=== PATIENT | female | born 1955 | race Caucasian/White ===

== ENCOUNTER → 2018-02-24 12:10 | Outpatient (CLI) | payer OTHER, SELFPAY ==
--- NOTE | 2018-02-24 | DI.MG.S_ITS ---
BILATERAL DIGITAL SCREENING MAMMOGRAM 3D/2D WITH CAD: 02/24/2018 CLINICAL: Routine screening. Comparison is made to exams dated: 02/14/2017 mammogram, 01/10/2015 mammogram, and 08/12/2010 mammogram - [facility]. The tissue of both breasts is heterogeneously dense. This may lower the sensitivity of mammography. Current study was also evaluated with a Computer Aided Detection (CAD) system. No significant masses, calcifications, or other findings are seen in either breast. There has been no significant interval change. IMPRESSION: NEGATIVE There is no mammographic evidence of malignancy. A 1 year screening mammogram is recommended. This exam was interpreted at Station ID: [id number]. NOTE: For mammograms, a report in lay terms will be sent to the patient. Approximately 15% of breast malignancies will not be visualized mammographically. In the management of a palpable breast mass, a negative mammogram must not discourage biopsy of a clinically suspicious lesion. Electronically Signed By: Brad rodriguez/fatmata:02/24/2018 16:37:58 copy to: Netta Pierce letter sent: Normal Exam ACR BI-RADS Category 1: Negative 3341F
== END ==
PROVIDERS: Family Provider Physician Assistant; PCP Physician Assistant; Visit Provider Physician Assistant
DX: Z12.31 Encounter for screening mammogram for malignant neoplasm of breast (principal)
CPT/HCPCS: 77063; 77067

== ENCOUNTER → 2019-01-04 11:56 | Outpatient (CLI) | payer OTHER, SELFPAY ==
--- NOTE | 2019-01-04 11:59 | DI.RAD.S_ITS ---
PROCEDURE: XR HAND LT MIN 3V INDICATIONS: INJURED 3RD FINGEWR DOG +LEASH. TECHNIQUE: 3 views of the hand(s) acquired. COMPARISON: None. FINDINGS: Bones: No fractures or dislocations. Carpal bones are normally aligned. No suspicious bony lesions. Soft tissues: No suspicious soft tissue calcifications. No radiopaque foreign body. IMPRESSION: Fracture or dislocation. Dictated by: Robyn Davis M.D. on 01/04/2019 at 13:25 Approved by: Robyn Davis M.D. on 01/04/2019 at 13:26
== END ==
PROVIDERS: Family Provider Physician Assistant; PCP Physician Assistant; Visit Provider Physician Assistant
DX: S69.92XA Unspecified injury of left wrist, hand and finger(s), initial encounter (principal); X58.XXXA Exposure to other specified factors, initial encounter
CPT/HCPCS: 73130

== ENCOUNTER → 2019-02-21 10:01 | Outpatient (CLI) | payer OTHER, SELFPAY ==
[2019-02-21 10:06] LABS: Bacteria Urine None Seen; RBC Urine None Seen (0-5/HPF); WBC Urine None Seen (0-5/HPF)
[2019-02-21 10:44] LABS: Appearance Urine UA CLEAR; Bilirubin Urine UA NEGATIVE (NEGATIVE); Color Urine UA YELLOW; Glucose Urine UA NEGATIVE (Negative); Ketones Urine UA NEGATIVE (NEGATIVE); Leukocyte Esterase Urine UA NEGATIVE (NEGATIVE); Nitrite Urine UA NEGATIVE (Negative); Occult Blood Urine UA NEGATIVE (Negative); Protein Urine UA NEGATIVE (Negative); Specific Gravity Urine UA <=1.005 (1.000-1.035); Urobilinogen Urine UA 0.2 E.U./dL (0.2)
[2019-02-21 10:51] LABS: Culture Indicated Urine Cult Not Indicated; Urine Comments Microscopic Normal
== END ==
PROVIDERS: PCP Specialist; Visit Provider Specialist
DX: R39.9 Unspecified symptoms and signs involving the genitourinary system (principal)
CPT/HCPCS: 81001

== ENCOUNTER → 2019-05-02 11:41 | Outpatient (CLI) | payer OTHER, SELFPAY ==
[2019-05-02 12:30] LABS: Add Manual Diff / Slide Review NO; Basophils Absolute Auto 0 /uL (0-100); Basophils Percent Auto 0.5 % (0-2); Eosinophils Absolute Auto 0 /uL (0-450); Eosinophils Percent Auto 0.5 % (2-4); Hematocrit 40.9 % (36-46); Hemoglobin 14.1 g/dL (12.0-16.0); Lymphocytes Absolute Auto 1700 /uL (1100-4500); Lymphocytes Percent Auto 27.3 % (25-40); Mean Corpuscular HGB Conc 34.6 % (30-36); Mean Corpuscular Hemoglobin 30.9 PG (26-34); Mean Corpuscular Volume 89.4 fL (80-100); Monocytes Absolute Auto 500 /uL (0-900); Monocytes Percent Auto 7.3 % (3-14); Neutrophils Absolute Auto 4100 /uL (1500-7000); Neutrophils Percent Auto 64.4 % (50-75); Platelet Count 234 X10^3/uL (150-400); Red Blood Cell Count 4.57 X10^6/uL (4.0-5.2); Red Cell Distribution Width 13.6 % (11.6-14.8); White Blood Cell Count 6.4 X10^3/uL (4.5-11.0)
[2019-05-02 12:49] LABS: C-Reactive Protein Quant < 0.5 mg/dL (<1.0)
[2019-05-02 13:04] LABS: Erythrocyte Sedimentation Rate 5 MM/HR (0-20)
== END ==
PROVIDERS: PCP Family Medicine; Referring Provider Family Medicine; Visit Provider Family Medicine
DX: K57.30 Diverticulosis of large intestine without perforation or abscess without bleeding (principal); R10.9 Unspecified abdominal pain
CPT/HCPCS: 36415; 85025; 85651; 86140

== ENCOUNTER → 2020-02-20 14:52 | Outpatient (CLI) | payer OTHER, SELFPAY ==
--- NOTE | 2020-02-20 14:55 | DI.MG.S_ITS ---
BILATERAL DIGITAL SCREENING MAMMOGRAM 3D/2D WITH CAD: 02/20/2020 CLINICAL: Routine screening. Comparison is made to exams dated: 02/24/2018 mammogram, 02/14/2017 mammogram, and 01/10/2015 mammogram - [facility]. There are scattered fibroglandular elements in both breasts. Current study was also evaluated with a Computer Aided Detection (CAD) system. No significant masses, calcifications, or other findings are seen in either breast. There has been no significant interval change. IMPRESSION: NEGATIVE There is no mammographic evidence of malignancy. A 1 year screening mammogram is recommended. This exam was interpreted at Station ID: [id number]. NOTE: For mammograms, a report in lay terms will be sent to the patient. Approximately 15% of breast malignancies will not be visualized mammographically. In the management of a palpable breast mass, a negative mammogram must not discourage biopsy of a clinically suspicious lesion. Electronically Signed By: Reji vincent/fatmata:02/20/2020 15:38:38 copy to: Netta Pierce letter sent: Normal Exam ACR BI-RADS Category 1: Negative 3341F
== END ==
PROVIDERS: PCP Family Medicine; Referring Provider Family Medicine; Visit Provider Family Medicine
DX: Z12.31 Encounter for screening mammogram for malignant neoplasm of breast (principal)
CPT/HCPCS: 77063; 77067

== ENCOUNTER → 2021-01-30 09:54 | Outpatient (CLI) | payer OTHER, SELFPAY | PROVIDERS: PCP Family Medicine; Referring Provider Physician Assistant Medical; Visit Provider Physician Assistant Medical | DX: L30.9 Dermatitis, unspecified (principal) | CPT/HCPCS: 36415; 86038 ==

== ENCOUNTER → 2021-03-13 10:04 | Outpatient (CLI) | payer OTHER, SELFPAY ==
[2021-03-13 10:27] LABS: COVID19 -Nasal RAPID POSITIVE (Negative)
== END ==
PROVIDERS: PCP Family Medicine; Visit Provider Nurse Practitioner Family
DX: Z20.822 Contact with and (suspected) exposure to COVID-19 (principal)
CPT/HCPCS: 87635

== ENCOUNTER → 2021-03-26 16:24 | Outpatient (CLI) | payer OTHER, SELFPAY ==
--- NOTE | 2021-03-26 | DI.MG.S_ITS ---
BILATERAL DIGITAL SCREENING MAMMOGRAM 3D/2D WITH CAD: 03/26/2021 CLINICAL: Routine screening. Comparison is made to exams dated: 02/20/2020 mammogram, 02/24/2018 mammogram, and 02/14/2017 mammogram - [facility]. There are scattered fibroglandular elements in both breasts. Current study was also evaluated with a Computer Aided Detection (CAD) system. No significant masses, calcifications, or other findings are seen in either breast. There has been no significant interval change. IMPRESSION: NEGATIVE There is no mammographic evidence of malignancy. A 1 year screening mammogram is recommended. This exam was interpreted at Station ID: [id number]. NOTE: For mammograms, a report in lay terms will be sent to the patient. Approximately 15% of breast malignancies will not be visualized mammographically. In the management of a palpable breast mass, a negative mammogram must not discourage biopsy of a clinically suspicious lesion. Electronically Signed By: Melissa givens/fatmata:03/27/2021 09:28:51 copy to: Netta Pierce letter sent: Normal Exam ACR BI-RADS Category 1: Negative 3341F
== END ==
PROVIDERS: PCP Family Medicine; Referring Provider Family Medicine; Visit Provider Family Medicine
DX: Z12.31 Encounter for screening mammogram for malignant neoplasm of breast (principal)
CPT/HCPCS: 77063; 77067

== ENCOUNTER → 2021-07-17 10:00 | Outpatient (CLI) | payer MEDICARE, OTHER, SELFPAY ==
[2021-07-17 10:37] LABS: Add Manual Diff / Slide Review NO; Basophils Absolute Auto 0 /uL (0-100); Basophils Percent Auto 0.2 % (0-2); Eosinophils Absolute Auto 0 /uL (0-450); Eosinophils Percent Auto 0.4 % (2-4); Hematocrit 41.7 % (36-46); Hemoglobin 14.3 g/dL (12.0-16.0); Lymphocytes Absolute Auto 1400 /uL (1100-4500); Mean Corpuscular HGB Conc 34.2 % (30-36); Mean Corpuscular Hemoglobin 30.9 PG (26-34); Mean Corpuscular Volume 90.3 fL (80-100); Monocytes Absolute Auto 400 /uL (0-900); Neutrophils Absolute Auto 4300 /uL (1500-7000); Neutrophils Percent Auto 70.4 % (50-75); Platelet Count 221 X10^3/uL (150-400); Red Blood Cell Count 4.62 X10^6/uL (4.0-5.2); Red Cell Distribution Width 13.9 % (11.6-14.8); White Blood Cell Count 6.2 X10^3/uL (4.5-11.0)
[2021-07-17 10:56] LABS: Alanine Aminotransferase 21 IU/L (<35); Albumin 5.1 g/dL (3.5-5.0); Albumin Globulin Ratio 1.8 (1.0-2.8); Alkaline Phosphatase 73 U/L (38-126); Aspartate Aminotransferase 35 IU/L (14-36); BUN Creatinine Ratio 23.5 (6-22); Bilirubin Total 0.7 mg/dL (0.2-1.3); Blood Urea Nitrogen 19 mg/dL (7-17); Carbon Dioxide 26 mmol/L (22-32); Chloride 104 mmol/L (98-107); Cholesterol 205 mg/dL (140-199); Estimated Glomerular Filt Rate > 60 mL/min (>60); Globulin 2.8 g/dL (1.7-4.1); Glucose 94 mg/dL (80-110); HDL Cholesterol 91 mg/dL (40-60); HEMOLYSIS < 15 (0-50); LDL Cholesterol Calculated 102 mg/dL (<100); Potassium 3.9 mmol/L (3.4-5.1); Sodium 141 mmol/L (137-145); Total Protein 7.9 g/dL (6.3-8.2); Triglycerides 59 mg/dL (35-150)
[2021-07-17 11:00] LABS: Rheumatoid Factor < 8.6 IU/mL (<12.0)
== END ==
PROVIDERS: PCP Family Medicine; Referring Provider Family Medicine; Visit Provider Family Medicine
DX: Z00.00 Encounter for general adult medical examination without abnormal findings (principal); Z12.11 Encounter for screening for malignant neoplasm of colon; Z80.0 Family history of malignant neoplasm of digestive organs
CPT/HCPCS: 36415; 80053; 80061; 84443; 85025; 86430

== ENCOUNTER → 2022-06-21 09:59 | Outpatient (CLI) | payer MEDICARE, OTHER, SELFPAY ==
--- NOTE | 2022-06-21 | DI.MG.S_ITS ---
BILATERAL DIGITAL SCREENING MAMMOGRAM 3D/2D WITH CAD: 06/21/2022 CLINICAL: Routine screening. Comparison is made to exams dated: 03/26/2021 mammogram, 02/20/2020 mammogram, and 02/24/2018 mammogram - [facility]. There are scattered areas of fibroglandular density in both breasts (category b / 25%-50% glandular tissue). Current study was also evaluated with a Computer Aided Detection (CAD) system. No significant masses, calcifications, or other findings are seen in either breast. There has been no significant interval change. IMPRESSION: NEGATIVE There is no mammographic evidence of malignancy. A 1 year screening mammogram is recommended. Based on the Tyrer Cuzick model (a risk assessment model) the patient's lifetime risk is 5.5% and her 10 year risk is 2.6%. According to the ACR, ACS, and NCCN guidelines, an annual breast MRI exam along with mammogram is recommended if the patient's lifetime risk is 20% or greater. This exam was interpreted at Station ID: [id number]. NOTE: For mammograms, a report in lay terms will be sent to the patient. Approximately 15% of breast malignancies will not be visualized mammographically. In the management of a palpable breast mass, a negative mammogram must not discourage biopsy of a clinically suspicious lesion. Electronically Signed By: Melissa givens/fatmata:06/21/2022 13:27:26 copy to: Netta Pierce letter sent: Normal Exam ACR BI-RADS Category 1: Negative 3341F
== END ==
PROVIDERS: PCP Family Medicine; Referring Provider Family Medicine; Visit Provider Family Medicine
DX: Z12.31 Encounter for screening mammogram for malignant neoplasm of breast (principal)
CPT/HCPCS: 77063; 77067

== ENCOUNTER → 2022-08-21 10:44 | Outpatient (CLI) | payer MEDICARE, OTHER, SELFPAY ==
--- NOTE | 2022-08-21 10:46 | DI.MRI.S_ITS ---
PROCEDURE: MR KNEE RT WO CON INDICATIONS: pain in left knee TECHNIQUE: Noncontrast sagittal PD fast spin echo and T2 fast spin echo with fat saturation, sagittal 3-D FLASH with fat saturation; coronal T1 spin echo and PD fast spin echo with fat saturation, and axial PD fast spin echo with fat saturation through the knee. COMPARISON:. [facility], CR, XR KNEE ARTHRITIC SERIES LT, 08/05/2022, 10:43. FINDINGS: Image quality: Excellent. Menisci: Oblique high T2 signal intensity traverses the peripheral 3rd of the medial meniscal body and posterior horn, demonstrating inferior articular surface extension, indicating oblique tearing. Vertically oriented linear high T2 signal intensity traverses the inner 3rd of the posterior horn lateral meniscus, demonstrating superior and inferior articular surface extension, indicating radial tearing. There is linear oblique high T2 signal intensity traversing the inner, middle, and peripheral thirds of the lateral meniscal body and anterior horn, demonstrating inferior articular surface extension, indicating oblique tearing. Cruciate ligaments: The anterior and posterior cruciate ligaments appear intact. Medial structures: The medial collateral ligament appears intact. Visualized portions of the pes anserinus tendons appear normal. No abnormal bursal fluid. Lateral structures: The lateral collateral ligament, long and short heads of the biceps femoris tendon appear intact. The popliteus tendon appears normal. Iliotibial band appears normal. Anterior structures: The quadriceps and patellar tendons appear intact. Mild T2 signal elevation within the quadriceps and patellar tendons at the patellar insertion sites. Patellar alignment is normal. No femoral trochlear dysplasia or ventral trochlear prominence. No edema in the infrapatellar fat pad. Bones and cartilage: No bone marrow contusions or fractures. There is a subchondral 12 mm diameter region of mixed high and low T2 signal intensity with multiple internal low T2 intensity foci. This is consistent with an enchondroma versus low-grade chondrosarcoma. Mild articular cartilage loss diffusely overlies the weight-bearing aspects of the medial and lateral compartments. Moderate articular cartilage loss overlies the medial and lateral patellar facets. Joint space: There is a small knee joint effusion. No Singh's cyst. Normal appearing synovial plicae are incidentally noted. IMPRESSION: 1. Medial and lateral meniscal tearing. 2. Tricompartmental osteoarthritis with associated articular cartilage loss. 3. Low-grade cartilaginous lesion within the distal femur as above. 4. Mild quadriceps and patellar tendinopathy. Dictated by: Prashant Hernandez M.D. on 08/23/2022 at 9:25 Approved by: Prashant Hernadnez M.D. on 08/23/2022 at 9:28
== END ==
PROVIDERS: PCP Family Medicine; Referring Provider Orthopaedic Surgery; Visit Provider Orthopaedic Surgery
DX: S83.241A Other tear of medial meniscus, current injury, right knee, initial encounter (principal); S83.281A Other tear of lateral meniscus, current injury, right knee, initial encounter; M17.12 Unilateral primary osteoarthritis, left knee; M25.562 Pain in left knee; M89.9 Disorder of bone, unspecified
CPT/HCPCS: 73721

== ENCOUNTER → 2023-01-12 09:46 | Outpatient (CLI) | payer MEDICARE, OTHER, SELFPAY ==
[2023-01-12 10:39] LABS: Hematocrit 41.1 % (36-46); Hemoglobin 14.1 g/dL (12.0-16.0); Mean Corpuscular HGB Conc 34.2 % (30-36); Mean Corpuscular Hemoglobin 30.9 PG (26-34); Mean Corpuscular Volume 90.3 fL (80-100); Platelet Count 241 X10^3/uL (150-400); Red Blood Cell Count 4.55 X10^6/uL (4.0-5.2); Red Cell Distribution Width 13.2 % (11.6-14.8); White Blood Cell Count 5.7 X10^3/uL (4.5-11.0)
[2023-01-12 11:06] LABS: Blood Urea Nitrogen 20 mg/dL (7-17); Calcium 10.4 mg/dL (8.4-10.2); Carbon Dioxide 28 mmol/L (22-32); Chloride 103 mmol/L (98-107); Estimated Glomerular Filt Rate > 60 mL/min (>60); Glucose 97 mg/dL (80-110); HEMOLYSIS < 15 (0-50); Potassium 4.7 mmol/L (3.4-5.1); Sodium 138 mmol/L (137-145)
[2023-01-12 11:15] LABS: Free T3, Triiodothyronine Free 3.84 pg/mL (2.77-5.27); Free T4, Direct Thyroxine 0.95 ng/dL (0.78-2.19); Vitamin D 25 Hydroxy (D3) 64.8 ng/mL (30.0-100.0)
[2023-01-12 11:28] LABS: Thyroid Stimulating Hormone 4.25 uIU/mL (0.47-4.68)
== END ==
PROVIDERS: PCP Family Medicine; Referring Provider Family Medicine; Visit Provider Family Medicine
DX: D64.9 Anemia, unspecified (principal); E55.9 Vitamin D deficiency, unspecified; E78.5 Hyperlipidemia, unspecified; R53.83 Other fatigue
CPT/HCPCS: 36415; 80048; 82306; 84439; 84443; 84481; 85027

== ENCOUNTER → 2023-02-07 11:03 | Outpatient (CLI) | payer MEDICARE, OTHER, SELFPAY ==
[2023-02-07 12:05] LABS: Calcium 10.4 mg/dL (8.4-10.2)
[2023-02-09 08:54] LABS: Parathyroid Hormone Int 23 pg/mL (15-65)
[2023-02-21 15:40] LABS: 1,25-Dihydroxy, Vitamin D-2 <10 pg/mL (.)
== END ==
PROVIDERS: PCP Family Medicine; Referring Provider Family Medicine; Visit Provider Family Medicine
DX: E83.52 Hypercalcemia (principal)
CPT/HCPCS: 36415; 82306; 82310; 82652; 83970

== ENCOUNTER 2023-03-23 21:10 | Emergency (ER) | payer MEDICARE, OTHER, SELFPAY ==
[2023-03-23 21:13] VITALS: BP 147/68; PULSE 57; RESP 18; TEMP 37.1; O2SAT 100; BMI 18.3
[2023-03-23] MEDS: PEG3350/SOD SULF,BICARB,CL/KCL 4,000 ML SOLUTION 4000 ML PO (21:23)
--- NOTE | 2023-03-23 21:24 | ED.GENADULT ---
HPI - General Adult General Chief complaint: Recheck/Abnormal Lab/Rx Stated complaint: here for RX Time Seen by Provider: 03/23/23 21:11 Source: patient Mode of arrival: Ambulatory History of Present Illness HPI narrative: Patient presents for colonoscopy prep medication. Patient has a procedure tomorrow morning and [place] 2nd [place] She wants to make sure that her procedure has adequate quality and is here to see if we have a medication that can finish her prep. Related Data Home Medications Medication Instructions Recorded Confirmed CA PANTOTHENATE/FOLIC ACID/VIT 1 tab PO QDAY ##0 04/03/12 10/12/22 (MULTIVITAMIN) Previous Rx's Medication Instructions Recorded sodium,potassium,mag sulfates 17.5 See Rx Instructions PO .COMPLEX 01/13/23 gram-3.13 gram-1.6 gram oral soln #354 mL (Suprep Bowel Prep Kit) Allergies Allergy/AdvReac Type Severity Reaction Status Date / Time hydrocodone AdvReac Severe syncope Verified 10/12/22 15:59 midazolam [From Versed] AdvReac Severe Agitated Verified 10/12/22 15:59 oxycodone AdvReac Severe syncope Verified 10/12/22 15:59 Review of Systems Review of Systems Narrative: otherwise negative Patient History Medical History Anemia (~1977) Family history of colon cancer Oral leukoplakia Herpes Gastric ulcer (~1994) Diverticulosis of large intestine without hemorrhage (08/19/16) 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) Left sided abdominal pain Surgical History Anesthesia History of removal of cyst (~2015) History of colonoscopy (~2017) Status post knee surgery (~1997) Status post endoscopy Family History Father Hypertension Colon cancer Osteoarthritis of hips, bilateral Gout Mother Glaucoma Hypertension Colon cancer Atrial fibrillation Gastric polyps CVA (cerebral vascular accident) Social History Smoking Status: Never smoker Smoking Status: Never smoker Substance Use Type: does not use Exam Initial Vital Signs Initial Vital Signs: Vital Signs Temperature 98.7 F 03/23/23 21:13 Pulse Rate 57 L 03/23/23 21:13 Respiratory Rate 18 03/23/23 21:13 Blood Pressure 147/68 H 03/23/23 21:13 Pulse Oximetry 100 03/23/23 21:13 Oxygen Delivery Method Room Air 03/23/23 21:13 Const: Awake, alert, no acute distress, nontoxic appearing Neuro: AO x3, CN II-XII grossly intact, moves all extremities Psych: affect normal, mood normal Course Course Course Narrative: Patient presenting requesting a medication to complete her colonoscopy prep for her procedure tomorrow. Large jug of GoLYTELY provided to patient and she was instructed to begin taking this medication immediately Orders Ordered: Discontinued Medications Polyethylene Glycol/Electrolytes ([id number]/Sod Sulf,Bicarb,Cl/Kcl 4,000 Ml Solution) 4,000 ml PO NOW ONE Stop: 03/23/23 21:12 Last Admin: 03/23/23 21:23 Dose: 4,000 ml Documented By: HNG Vital Signs Vital signs: Vital Signs - 8 hr 03/23/23 21:13 Temperature 98.7 F Pulse Rate 57 L Respiratory Rate 18 Blood Pressure 147/68 H Pulse Oximetry 100 Oxygen Delivery Method Room Air Discharge Plan Departure Patient Disposition: Home Clinical Impression: Medication refill Instructions: Colonoscopy Prescriptions: No Action CA PANTOTHENATE/FOLIC ACID/VIT (MULTIVITAMIN) 1 tab PO QDAY Qty: 0 sodium,potassium,mag sulfates [Suprep Bowel Prep Kit] 17.5-3.13-1.6 gram recon soln See Rx Instructions PO .COMPLEX Qty: 354 0RF Rx Instructions: take as directed by Physician Referrals: Yaritza Casas DO [Primary Care Provider] - Stand Alone Forms: Patient Portal/API
== END 2023-03-23 21:28 | disposition home or self-care (01) ==
PROVIDERS: Emergency Provider Emergency Medicine; PCP Family Medicine
DX: Z76.0 Encounter for issue of repeat prescription (principal)
CPT/HCPCS: 99283

== ENCOUNTER 2023-03-24 08:09 | Day surgery (SDC) | payer MEDICARE, OTHER, SELFPAY ==
--- NOTE | 2023-03-24 | PATH_ITS ---
[facility] Accession Number: [id number] No. of containers..02 Tissue . 01 Material submitted: . PART A: colon - TRANSVERSE POLYP PART B: colon - DESCENDING POLYP . 01 Diagnosis: A. Transverse Colon Polyp, Biopsy: Colonic mucosa with focal mucosal hyperplasia, suggestive of early development of hyperplastic polyp. . B. Descending Colon Polyp, Biopsy: Colonic mucosa with benign lymphoid aggregates. No dysplasia or neoplasia identified. [facility] 03/29/2023 1327 Local . 01 Electronically signed: . Krista Key MD, Pathologist NPI- [id number] . 01 Gross description: . Part A: TRANSVERSE POLYP: Received in formalin is 1 fragment(s) of penaloza, soft tissue measuring 0.3 x 0.2 x 0.1 cm submitted entirely in 1 cassette(s) Part B: DESCENDING POLYP: Received in formalin is 1 fragment(s) of penaloza, soft tissue measuring 1.0 x 0.7 x 0.1 cm submitted entirely in 1 cassette(s) /AAY 03/25/2023 0442 Local . 01 Pathologist provided ICD-10: D12.3, K63.89, Z12.10 . 01 CPT . 894021, 380724 Specimen Comment: A courtesy copy of this report has been sent to [phone] Performed at: 01 [facility] [address] [place] [address], [place], [place] [id number] MD Brad Rodríguez MD Phone: [phone]
[2023-03-24 08:31] VITALS: BP 139/75; PULSE 53; RESP 16; TEMP 36.3; O2SAT 100; BMI 18.3
[2023-03-24] MEDS: LACTATED RINGERS 1,000 ML 150 ML IV (08:42)
--- NOTE | 2023-03-24 08:53 | PM.HP.1 ---
History of Present Illness History of Present Illness Date Patient Seen: 03/24/23 Time Patient Seen: 08:53 Chief complaint: Screening Colonoscopy Narrative: Merari is a 67-year-old woman who is here for colonoscopy. Her last was in 2017 and she did not have polyps. Both of her parents had colon cancer in their 80s and her father from colon cancer. 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) Left sided abdominal pain Surgical History Anesthesia History of removal of cyst (~2015) History of colonoscopy (~2017) Status post knee surgery (~1997) Status post endoscopy Family History Father Hypertension Colon cancer Osteoarthritis of hips, bilateral Gout Mother Glaucoma Hypertension Colon cancer Atrial fibrillation Gastric polyps CVA (cerebral vascular accident) Social History household members: spouse Smoking Status: Never smoker alcohol intake: never Meds Home Medications and Allergies Home Medications Medication Instructions Recorded Confirmed Type CA PANTOTHENATE/FOLIC ACID/VIT 1 tab PO QDAY ##0 04/03/12 03/24/23 History (MULTIVITAMIN) Allergies Allergy/AdvReac Type Severity Reaction Status Date / Time hydrocodone AdvReac Severe syncope Verified 03/24/23 08:25 midazolam [From Versed] AdvReac Severe Agitated Verified 03/24/23 08:25 oxycodone AdvReac Severe syncope Verified 03/24/23 08:25 Exam Vital Signs (past 8 hours): - 03/24/23 08:31 Temperature 97.4 F L Pulse Rate 53 L Respiratory Rate 16 Blood Pressure 139/75 Pulse Oximetry 100 Oxygen Delivery Method Room Air Oxygen Delivery Method Room Air Const General: healthy appearing and No acute distress Assessment & Plan Assessment and plan (1) Family history of colon cancer: Problem details: mother and father Status: Acute Plan Merari is a 67-year-old woman here for colonoscopy. We reviewed the risks and benefits of colonoscopy for colon cancer screening and she would like to proceed.
[2023-03-24 10:25] VITALS: BP 106/62; PULSE 61; RESP 16; TEMP 36.2; O2SAT 98
--- NOTE | 2023-03-24 10:25 | PM.OP.COLON ---
Operative Date/Time/Diagnoses Date of procedure: 03/24/23 Time of procedure: 10:25 Pre-op diagnosis: Family history of colon cancer Post-op diagnosis: same Procedure & Clinicians Study performed: Colonoscopy Same procedure as scheduled: Yes Surgeon: Herberth Padilla Procedure Notes Procedure in detail: Surgeon: Herberth Padilla MD Anesthesia: Osmin Cooper D.O. Procedure: The patient was brought to the endoscopy suite, placed in left lateral decubitus position. The patient was connected to monitoring devices. A time-out was performed. Sedation was administered. Once the patient was adequately sedated, a digital rectal exam was performed and was normal. The scope was then inserted and advanced to the cecum where the appendiceal orifice was identified and photographed. The scope was then slowly withdrawn over greater than 6 minutes. The mucosa was thoroughly inspected. There was a 4 mm polyp in the transverse colon removed with cold Jumbo forceps. There was a 6 mm polyp in the descending colon removed with a cold snare. There was pandiverticulosis greatest in the sigmoid colon. The sigmoid colon was rather narrow and tortuous. The scope was retroflexed in the rectum. Internal hemorrhoids were noted. The scope was straightened and removed. The patient was awakened and brought to recovery. Scope withdrawal time: 14 minutes Sedation time: 35 minutes EBL: 5 mL Findings: Pandiverticulosis greatest in the sigmoid colon, a narrow tortuous sigmoid colon, 4 mm polyp in the transverse colon and 6 mm polyp in the descending colon Post-procedure Disposition: PACU
[2023-03-24 10:30] VITALS: BP 106/62; PULSE 59; RESP 16; O2SAT 98
[2023-03-24 10:40] VITALS: BP 106/66; PULSE 60; RESP 16; O2SAT 98
== END 2023-03-24 10:59 | disposition home or self-care (01) ==
PROVIDERS: PCP Family Medicine; Referring Provider Surgery; Visit Provider Surgery
PROC: 0DJD8ZZ Inspection of Lower Intestinal Tract, Via Natural or Artificial Opening Endoscopic (ICD-10-PCS; CPT 45378; principal; 2023-03-24 09:15)
DX: Z12.11 Encounter for screening for malignant neoplasm of colon (principal); Z80.0 Family history of malignant neoplasm of digestive organs; K57.30 Diverticulosis of large intestine without perforation or abscess without bleeding; K63.5 Polyp of colon
CPT/HCPCS: 45385; J2704

== ENCOUNTER 2023-03-29 10:48 | Emergency (ER) | payer MEDICARE, OTHER, SELFPAY ==
[2023-03-29 11:20] VITALS: BP 136/64; PULSE 52; RESP 17; TEMP 36.4; O2SAT 99; BMI 18.3
[2023-03-29 11:54] LABS: Appearance Urine UA CLEAR; Bilirubin Urine UA NEGATIVE (NEGATIVE); Color Urine UA YELLOW; Glucose Urine UA NEGATIVE (Negative); Ketones Urine UA NEGATIVE (NEGATIVE); Leukocyte Esterase Urine UA NEGATIVE (NEGATIVE); Nitrite Urine UA NEGATIVE (Negative); Occult Blood Urine UA NEGATIVE (Negative); Protein Urine UA NEGATIVE (Negative); Specific Gravity Urine UA <=1.005 (1.000-1.035); Urobilinogen Urine UA 0.2 E.U./dL (0.2)
[2023-03-29 11:55] LABS: pH Urine UA 6.5 (4.5-8.0)
[2023-03-29 11:59] LABS: Bacteria Urine None Seen; Culture Indicated Urine Cult Not Indicated; RBC Urine None Seen (0-5/HPF); Squamous Epithelial Cell Urine None Seen (0-5/HPF); WBC Urine None Seen (0-5/HPF)
--- NOTE | 2023-03-29 12:07 | ED_ITS ---
HPI - Abdominal Pain <Silvia Conklin PA-C - Last Filed: 03/29/23 15:30> General Chief Complaint: Abdominal Pain Stated Complaint: complications from colonoscopy 03/24/2023 Time Seen by Provider: 03/29/23 11:55 Source: patient Mode of arrival: Ambulatory History of Present Illness HPI narrative: Patient is a 67 year old female who presents 5 days post-colonoscopy with chills, abdominal pain and left low back pain. This was a screening colonoscopy with Dr. Padilla, had 2 polyps removed. Since the procedure, she has had intermittent chills and hot flashes, no measureable fever. Nearly constant nausea, no vomitting. Abd pain, worst in LLQ. Has been having nonbloody small stools. No dysuria, urinary frequency. Drinking plenty of water and herbal tea. Has had colonoscopies in the past, without complication. Endorses lower abdominal bloating, feels like I'm six months . C/o left kidney pain over left low back. No radiating pain. Has taken tylenol, no other medications for her symptoms. Review of colonsocopy procedure note: Pandiverticulosis greatest in the sigmoid colon, a narrow tortuous sigmoid colon, 4 mm polyp in the transverse colon and 6 mm polyp in the descending colon. Related Data Home Medications Medication Instructions Recorded Confirmed No Known Home Medications 03/29/23 03/29/23 Allergies Allergy/AdvReac Type Severity Reaction Status Date / Time hydrocodone AdvReac Severe syncope Verified 03/29/23 11:22 midazolam [From Versed] AdvReac Severe Agitated Verified 03/29/23 11:22 oxycodone AdvReac Severe syncope Verified 03/29/23 11:22 Review of Systems <Silvia Conklin PA-C - Last Filed: 03/29/23 15:30> Review of Systems ROS Unobtainable: All systems reviewed & are unremarkable except as noted in HPI and below Patient History <Silvia Conklin PA-C - Last Filed: 03/29/23 15:30> Medical History Anemia (~1977) Family history of colon cancer Oral leukoplakia Herpes Gastric ulcer (~1994) Diverticulosis of large intestine without hemorrhage (08/19/16) 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) Left sided abdominal pain Surgical History Anesthesia History of removal of cyst (~2015) History of colonoscopy (~2017) Status post knee surgery (~1997) Status post endoscopy Family History Father Hypertension Colon cancer Osteoarthritis of hips, bilateral Gout Mother Glaucoma Hypertension Colon cancer Atrial fibrillation Gastric polyps CVA (cerebral vascular accident) Social History household members: spouse Smoking Status: Never smoker alcohol intake: never Smoking Status: Never smoker Substance Use Type: does not use Exam <Silvia Conklin PA-C - Last Filed: 03/29/23 15:30> Narrative Exam Narrative: GENERAL: 67 year old patient appears stated age. Well-developed patient, in no acute distress. NEURO: Patient is alert and oriented x3 and with normal mood and affect. HEAD: Atraumatic. Normocephalic. EYES: Pupils equal round and reactive. Extraocular motions intact. No scleral icterus. No injection or drainage. CARDIAC: RRR RESPIRATORY: No increased work of breathing or distress ABDOMEN: active bowel tones. soft, patient very thin and does appear distended. No peritoneal signs. No CVA tenderness. Negative Chapman's sign, no tenderness over McBurneys. BACK: Tender over left SI joint, no flank tenderness EXTREMITIES: No edema or joint tenderness. SKIN: No rash or erythema of visible areas Initial Vital Signs Initial Vital Signs: Vital Signs Temperature 97.5 F L 03/29/23 11:20 Pulse Rate 52 L 03/29/23 11:20 Respiratory Rate 17 03/29/23 11:20 Blood Pressure 136/64 03/29/23 11:20 Pulse Oximetry 99 03/29/23 11:20 Oxygen Delivery Method Room Air 03/29/23 11:20 <Alcira Medina DO - Last Filed: 04/01/23 07:33> Initial Vital Signs Initial Vital Signs: Vital Signs Temperature 97.5 F L 03/29/23 11:20 Pulse Rate 52 L 03/29/23 11:20 Respiratory Rate 17 03/29/23 11:20 Blood Pressure 136/64 03/29/23 11:20 Pulse Oximetry 99 03/29/23 11:20 Oxygen Delivery Method Room Air 03/29/23 11:20 Course <Silvia Conklin PA-C - Last Filed: 03/29/23 15:30> Orders Ordered: Discontinued Medications Sodium Chloride (Normal Saline 0.9%) 1,000 mls @ 1,000 mls/hr IV BOLUS ONE Stop: 03/29/23 13:01 Last Infusion: 03/29/23 14:15 Dose: Infused Documented By: Admin: 03/29/23 12:31 Dose: 1,000 mls/hr Documented By: TIMUR Ondansetron HCl (Ondansetron 4 Mg/2 Ml Inj) 4 mg IV NOW ONE Stop: 03/29/23 12:03 Last Admin: 03/29/23 12:32 Dose: Not Given Documented By: TIMUR Vital Signs Vital signs: Vital Signs - 8 hr 03/29/23 11:20 03/29/23 13:24 03/29/23 14:41 Temperature 97.5 F L 97.4 F L Pulse Rate 52 L 54 L 54 L Respiratory Rate 17 18 12 Blood Pressure 136/64 139/63 165/85 H Pulse Oximetry 99 100 100 Oxygen Delivery Method Room Air Room Air Room Air <Alcira Medina DO - Last Filed: 04/01/23 07:33> Orders Ordered: Discontinued Medications Sodium Chloride (Normal Saline 0.9%) 1,000 mls @ 1,000 mls/hr IV BOLUS ONE Stop: 03/29/23 13:01 Last Infusion: 03/29/23 14:15 Dose: Infused Documented By: Admin: 03/29/23 12:31 Dose: 1,000 mls/hr Documented By: TIMUR Ondansetron HCl (Ondansetron 4 Mg/2 Ml Inj) 4 mg IV NOW ONE Stop: 03/29/23 12:03 Last Admin: 03/29/23 12:32 Dose: Not Given Documented By: TIMUR Vital Signs Vital signs: Vital Signs - 8 hr 03/29/23 11:20 03/29/23 13:24 03/29/23 14:41 Temperature 97.5 F L 97.4 F L Pulse Rate 52 L 54 L 54 L Respiratory Rate 17 18 12 Blood Pressure 136/64 139/63 165/85 H Pulse Oximetry 99 100 100 Oxygen Delivery Method Room Air Room Air Room Air MDM - Abdominal Pain <Silvia Conklin PA-C - Last Filed: 03/29/23 15:30> Lab Data 03/29/23 12:18 03/29/23 12:18 Labs: Lab Results 03/29/23 03/29/23 03/29/23 Range/Units 11:52 12:18 12:41 WBC 4.6 (4.5-11.0) X10^3/uL RBC 4.42 (4.0-5.2) X10^6/uL Hgb 13.4 (12.0-16.0) g/dL Hct 39.7 (36-46) % MCV 89.9 (80-100) fL MCH 30.3 (26-34) PG MCHC 33.8 (30-36) % RDW 13.4 (11.6-14.8) % Plt Count 217 (150-400) X10^3/uL Neut % (Auto) 57.2 (50-75) % Lymph % (Auto) 34.0 (25-40) % [place] % (Auto) 6.8 (3-14) % Eos % (Auto) 1.1 L (2-4) % Baso % (Auto) 0.9 (0-2) % Neut # (Auto) 2600 (7508-9300) /uL Lymph # (Auto) 1600 (8175-4146) /uL [place] # (Auto) 300 (0-900) /uL Eos # (Auto) 0 (0-450) /uL Baso # (Auto) 0 (0-100) /uL Sodium 138 (137-145) mmol/L Potassium 3.8 (3.4-5.1) mmol/L Chloride 102 (98-107) mmol/L Carbon Dioxide 28 (22-32) mmol/L BUN 17 (7-17) mg/dL Creatinine 0.71 (0.52-1.04) mg/dL Estimated GFR > 60 (>60) mL/min BUN/Creatinine Ratio 23.9 H (6-22) Glucose 83 (80-110) mg/dL Calcium 10.1 (8.4-10.2) mg/dL Total Bilirubin 0.9 (0.2-1.3) mg/dL AST 38 H (14-36) IU/L ALT 21 (<35) IU/L Alkaline Phosphatase 58 (38-126) U/L Ammonia 11 (9-30) umol/L Total Protein 7.4 (6.3-8.2) g/dL Albumin 4.5 (3.5-5.0) g/dL Globulin 2.9 (1.7-4.1) g/dL Albumin/Globulin Ratio 1.6 (1.0-2.8) Lipase 82 (23-300) U/L Urine Color Yellow Urine Appearance Clear Urine pH 6.5 (4.5-8.0) Ur Specific [place] <=1.005 (1.000-1.035) Urine Protein Negative (Negative) Urine Glucose (UA) Negative (Negative) g/dL Urine Ketones Negative (NEGATIVE) Urine Occult Blood Negative (Negative) Urine Nitrate Negative (Negative) Urine Bilirubin Negative (NEGATIVE) Urine Urobilinogen 0.2 (0.2) E.U./dL Ur Leukocyte Esterase Negative (NEGATIVE) Urine RBC None seen (0-5/HPF) Urine WBC None seen (0-5/HPF) Ur Squamous Epith Cells None seen (0-5/HPF) Urine Bacteria None seen (None) Ur Culture Indicated? Cult not indicated Imaging Data CT scan - abdomen/pelvis: Radiologist's Impression: PROCEDURE: CT ABDOMEN PELVIS W CON INDICATIONS: abd pain and nausea, s/p colonsocopy on 03/24 TECHNIQUE: After the administration of intravenous contrast, axial sections acquired from the lung bases to the pubic symphysis. Coronal and sagittal reformats were performed. For radiation dose reduction, the following was used: automated exposure control, adjustment of mA and/or kV according to patient size. COMPARISON: [facility], CT, ABDOMEN/PELVIS WITH CONTRAST, 11/03/2015, 21:44. FINDINGS: Image quality: Diagnostic. Lower Chest: No significant findings. ABDOMEN: Liver: No solid mass. Liver is enlarged measuring 17.7 cm. Gallbladder: No radiopaque gallstones or wall thickening. Biliary ducts: No biliary dilation. Pancreas: No ductal dilation. Spleen: Size is within normal limits. Adrenal Glands: No adrenal nodules. Kidneys and Ureters: No hydronephrosis. No solid mass. No complex renal cystic lesion which requires follow up. Stomach and Bowel: Normal colonic caliber, without significant wall thickening. Moderate colonic stool. Peritoneum: No abnormal intraperitoneal fluid. No free air. Ventral Wall: No hernia. Abdominal Nodes: No retroperitoneal or mesenteric adenopathy by size criteria. Vessels: Aorta and inferior vena cava are normal in size. PELVIS: Pelvic Organs: Unremarkable. Bladder: Unremarkable. Pelvic Nodes: No enlarged lymph nodes. Miscellaneous: No inguinal hernias are seen. Bones: No aggressive osseous abnormality. IMPRESSION: No acute intra-abdominal pelvic process. No free air free fluid. Dictated by: Ashanti Sorto M.D. on 03/29/2023 at 13:47 Approved by: Ashanti Sorto M.D. on 03/29/2023 at 13:48 MDM Narrative Medical decision making narrative: Differential includes post-operative perforation or infection, diverticulitis, colitis, cholecystitis, UTI, pyelonephritis. Vitals normal, abdominal exam benign. Will check labs and obtain CT abd with contrast to evaluate for evidence of perforation or infection. UA negative for infection. Based on review of the operative report, patient placed in left lateral decubitus position, which may explain her left low back/SI pain. Labs normal, CT abdomen without acute abnormalities. Discussed findings with the patient, suspect the symptoms are related to a slow recovery after the procedure. Advised continued supportive care including lots of fluids, light diet, follow up with PCP if not improved in several days. Return precautions advised. <Alcira Medina, DO - Last Filed: 04/01/23 07:33> Lab Data Labs: Lab Results 03/29/23 03/29/23 03/29/23 Range/Units 11:52 12:18 12:41 WBC 4.6 (4.5-11.0) X10^3/uL RBC 4.42 (4.0-5.2) X10^6/uL Hgb 13.4 (12.0-16.0) g/dL Hct 39.7 (36-46) % MCV 89.9 (80-100) fL MCH 30.3 (26-34) PG MCHC 33.8 (30-36) % RDW 13.4 (11.6-14.8) % Plt Count 217 (150-400) X10^3/uL Neut % (Auto) 57.2 (50-75) % Lymph % (Auto) 34.0 (25-40) % [place] % (Auto) 6.8 (3-14) % Eos % (Auto) 1.1 L (2-4) % Baso % (Auto) 0.9 (0-2) % Neut # (Auto) 2600 (1474-1325) /uL Lymph # (Auto) 1600 (2770-6273) /uL [place] # (Auto) 300 (0-900) /uL Eos # (Auto) 0 (0-450) /uL Baso # (Auto) 0 (0-100) /uL Sodium 138 (137-145) mmol/L Potassium 3.8 (3.4-5.1) mmol/L Chloride 102 (98-107) mmol/L Carbon Dioxide 28 (22-32) mmol/L BUN 17 (7-17) mg/dL Creatinine 0.71 (0.52-1.04) mg/dL Estimated GFR > 60 (>60) mL/min BUN/Creatinine Ratio 23.9 H (6-22) Glucose 83 (80-110) mg/dL Calcium 10.1 (8.4-10.2) mg/dL Total Bilirubin 0.9 (0.2-1.3) mg/dL AST 38 H (14-36) IU/L ALT 21 (<35) IU/L Alkaline Phosphatase 58 (38-126) U/L Ammonia 11 (9-30) umol/L Total Protein 7.4 (6.3-8.2) g/dL Albumin 4.5 (3.5-5.0) g/dL Globulin 2.9 (1.7-4.1) g/dL Albumin/Globulin Ratio 1.6 (1.0-2.8) Lipase 82 (23-300) U/L Urine Color Yellow Urine Appearance Clear Urine pH 6.5 (4.5-8.0) Ur Specific [place] <=1.005 (1.000-1.035) Urine Protein Negative (Negative) Urine Glucose (UA) Negative (Negative) g/dL Urine Ketones Negative (NEGATIVE) Urine Occult Blood Negative (Negative) Urine Nitrate Negative (Negative) Urine Bilirubin Negative (NEGATIVE) Urine Urobilinogen 0.2 (0.2) E.U./dL Ur Leukocyte Esterase Negative (NEGATIVE) Urine RBC None seen (0-5/HPF) Urine WBC None seen (0-5/HPF) Ur Squamous Epith Cells None seen (0-5/HPF) Urine Bacteria None seen (None) Ur Culture Indicated? Cult not indicated Discharge Plan Departure Patient Disposition: Home Clinical Impression: Abdominal pain Qualifiers: Abdominal location: generalized Qualified Code(s): R10.84 - Generalized abdominal pain Low back pain Qualifiers: Chronicity: acute Back pain laterality: left Sciatica presence: without sciatica Qualified Code(s): M54.50 - Low back pain, unspecified Instructions: DI for Abdominal Pain-Adult Activity Restrictions/Additional Instructions: *You have been diagnosed with abdominal pain after colonoscopy. Today we checked your labs to look for signs of infection and obtained a CT scan of your abdomen to look for signs of perforation or infection after the colonoscopy. We do not find any signs of infection or perforation. Your urine was also clear and to do not have a urinary tract infection or kidney infection. I anticipate that your abdominal pain will continue to improve slowly over the next several days. I will prescribe some nausea medicine for you to use at home. I would continue to drink plenty of fluids and eat a light diet as tolerated. I would suggest calling your primary care and asking for an appointment at the end of the week so that you have a follow-up in case you are not feeling better. Please return if your pain worsens significantly, if you have recurrent vomiting, if you develop a fever with your abdominal pain. *What to do: *Please continue to take your regular medications as directed. [x] New medication prescriptions sent to your pharmacy: [facility] [ ] New medication written as a paper prescription [ ] No new medications given *Please follow up with your primary care provider in 2-3 days, call for an appointment. Let them know you were seen in the Emergency Department and that we ask that you be seen in follow up. We will electronically transmit a record of today's note if your PCP is in our system *If you do not have a primary care provider please contact the [facility] Resource line at [phone]. They will ask some questions about your medical history and help get you set up with a doctor in the community. *Return to Emergency Department if you should have any new, worsening or concerning symptoms, such as [fever greater than 101 F, shaking chills, worsening pain, persistent vomiting or other concerning symptoms]. Prescriptions: No Action No Known Home Medications Referrals: Yaritza Casas DO [Primary Care Provider] - Stand Alone Forms: Patient Portal/API ED Sign-out <Alcira Medina DO - Last Filed: 04/01/23 07:33> Cosign ED Attending Nicole Attestation: I was immediately available in the department for consultation. Patient case was discussed. Here with plan for workup. Labs, imaging and urine were reviewed.
[2023-03-29] MEDS: SODIUM CHLORIDE 0.9% 1,000 ML 1000 ML IV (12:31)
[2023-03-29 12:38] LABS: Add Manual Diff / Slide Review NO; Basophils Absolute Auto 0 /uL (0-100); Basophils Percent Auto 0.9 % (0-2); Eosinophils Absolute Auto 0 /uL (0-450); Eosinophils Percent Auto 1.1 % (2-4); Hematocrit 39.7 % (36-46); Hemoglobin 13.4 g/dL (12.0-16.0); Lymphocytes Absolute Auto 1600 /uL (1100-4500); Mean Corpuscular HGB Conc 33.8 % (30-36); Mean Corpuscular Hemoglobin 30.3 PG (26-34); Mean Corpuscular Volume 89.9 fL (80-100); Monocytes Absolute Auto 300 /uL (0-900); Monocytes Percent Auto 6.8 % (3-14); Neutrophils Absolute Auto 2600 /uL (1500-7000); Neutrophils Percent Auto 57.2 % (50-75); Platelet Count 217 X10^3/uL (150-400); Red Blood Cell Count 4.42 X10^6/uL (4.0-5.2); Red Cell Distribution Width 13.4 % (11.6-14.8); White Blood Cell Count 4.6 X10^3/uL (4.5-11.0)
[2023-03-29 12:51] LABS: Alanine Aminotransferase 21 IU/L (<35); Albumin 4.5 g/dL (3.5-5.0); Albumin Globulin Ratio 1.6 (1.0-2.8); Alkaline Phosphatase 58 U/L (38-126); Aspartate Aminotransferase 38 IU/L (14-36); BUN Creatinine Ratio 23.9 (6-22); Bilirubin Total 0.9 mg/dL (0.2-1.3); Blood Urea Nitrogen 17 mg/dL (7-17); Calcium 10.1 mg/dL (8.4-10.2); Carbon Dioxide 28 mmol/L (22-32); Chloride 102 mmol/L (98-107); Estimated Glomerular Filt Rate > 60 mL/min (>60); Globulin 2.9 g/dL (1.7-4.1); Glucose 83 mg/dL (80-110); HEMOLYSIS < 15 (0-50); Lipase 82 U/L (23-300); Potassium 3.8 mmol/L (3.4-5.1); Sodium 138 mmol/L (137-145); Total Protein 7.4 g/dL (6.3-8.2)
[2023-03-29 13:01] LABS: Ammonia (NH3) 11 umol/L (9-30)
--- NOTE | 2023-03-29 13:16 | DI.CT.S_ITS ---
PROCEDURE: CT ABDOMEN PELVIS W CON INDICATIONS: abd pain and nausea, s/p colonsocopy on 03/24 TECHNIQUE: After the administration of intravenous contrast, axial sections acquired from the lung bases to the pubic symphysis. Coronal and sagittal reformats were performed. For radiation dose reduction, the following was used: automated exposure control, adjustment of mA and/or kV according to patient size. COMPARISON: [facility], CT, ABDOMEN/PELVIS WITH CONTRAST, 11/03/2015, 21:44. FINDINGS: Image quality: Diagnostic. Lower Chest: No significant findings. ABDOMEN: Liver: No solid mass. Liver is enlarged measuring 17.7 cm. Gallbladder: No radiopaque gallstones or wall thickening. Biliary ducts: No biliary dilation. Pancreas: No ductal dilation. Spleen: Size is within normal limits. Adrenal Glands: No adrenal nodules. Kidneys and Ureters: No hydronephrosis. No solid mass. No complex renal cystic lesion which requires follow up. Stomach and Bowel: Normal colonic caliber, without significant wall thickening. Moderate colonic stool. Peritoneum: No abnormal intraperitoneal fluid. No free air. Ventral Wall: No hernia. Abdominal Nodes: No retroperitoneal or mesenteric adenopathy by size criteria. Vessels: Aorta and inferior vena cava are normal in size. PELVIS: Pelvic Organs: Unremarkable. Bladder: Unremarkable. Pelvic Nodes: No enlarged lymph nodes. Miscellaneous: No inguinal hernias are seen. Bones: No aggressive osseous abnormality. IMPRESSION: No acute intra-abdominal pelvic process. No free air free fluid. Dictated by: Ashanti Sorto M.D. on 03/29/2023 at 13:47 Approved by: Ashanti Sorto M.D. on 03/29/2023 at 13:48
[2023-03-29 13:24] VITALS: BP 139/63; PULSE 54; RESP 18; TEMP 36.3; O2SAT 100
[2023-03-29 14:41] VITALS: BP 165/85; PULSE 54; RESP 12; O2SAT 100
== END 2023-03-29 14:43 | disposition home or self-care (01) ==
PROVIDERS: Emergency Provider Physician Assistant; PCP Family Medicine
DX: R10.84 Generalized abdominal pain (principal); M54.50 Low back pain, unspecified
CPT/HCPCS: 36415; 74177; 80053; 81001; 82140; 83690; 85025; 96360; 96361; 99284

== ENCOUNTER → 2023-06-24 09:50 | Outpatient (CLI) | payer MEDICARE, OTHER, SELFPAY ==
[2023-06-24 11:00] LABS: Add Manual Diff / Slide Review NO; Basophils Absolute Auto 0 /uL (0-100); Basophils Percent Auto 0.7 % (0-2); Eosinophils Absolute Auto 0 /uL (0-450); Hematocrit 39.1 % (36-46); Hemoglobin 13.4 g/dL (12.0-16.0); Lymphocytes Absolute Auto 1200 /uL (1100-4500); Lymphocytes Percent Auto 28.8 % (25-40); Mean Corpuscular HGB Conc 34.3 % (30-36); Mean Corpuscular Hemoglobin 31.1 PG (26-34); Mean Corpuscular Volume 90.9 fL (80-100); Monocytes Absolute Auto 300 /uL (0-900); Monocytes Percent Auto 6.8 % (3-14); Neutrophils Absolute Auto 2600 /uL (1500-7000); Neutrophils Percent Auto 62.7 % (50-75); Platelet Count 230 X10^3/uL (150-400); Red Cell Distribution Width 13.1 % (11.6-14.8); White Blood Cell Count 4.2 X10^3/uL (4.5-11.0)
[2023-06-24 11:25] LABS: HEMOLYSIS < 15 (0-50); Iron 135 ug/dL (37-170)
[2023-06-24 11:27] LABS: Alanine Aminotransferase 19 IU/L (<35); Albumin 4.5 g/dL (3.5-5.0); Albumin Globulin Ratio 1.7 (1.0-2.8); Alkaline Phosphatase 77 U/L (38-126); Aspartate Aminotransferase 34 IU/L (14-36); BUN Creatinine Ratio 26.3 (6-22); Bilirubin Total 0.8 mg/dL (0.2-1.3); Blood Urea Nitrogen 21 mg/dL (7-17); Calcium 10.2 mg/dL (8.4-10.2); Carbon Dioxide 26 mmol/L (22-32); Chloride 106 mmol/L (98-107); Cholesterol 203 mg/dL (140-199); Estimated Glomerular Filt Rate > 60 mL/min (>60); Globulin 2.6 g/dL (1.7-4.1); Glucose 88 mg/dL (80-110); HDL Cholesterol 107 mg/dL (40-60); HEMOLYSIS < 15 (0-50); LDL Cholesterol Calculated 86 mg/dL (<100); Sodium 140 mmol/L (137-145); Total Protein 7.1 g/dL (6.3-8.2); Triglycerides 50 mg/dL (35-150); Uric Acid 4.8 mg/dL (2.5-6.2)
[2023-06-24 11:31] LABS: High Sensitivity CRP - Cardiac < 0.3 mg/L (1.0-3.0)
[2023-06-24 11:36] LABS: Percent Iron Saturation 42 % (15-50); Total Iron Binding Capacity 325 ug/dL (265-497); Transferrin 286 mg/dL (206-381)
[2023-06-24 11:46] LABS: Vitamin D 25 Hydroxy (D3) 63.9 ng/mL (30.0-100.0)
[2023-06-24 12:01] LABS: Ferritin 35 ng/mL (11-264)
[2023-06-28 10:50] LABS: Calcium 10.3 mg/dL (8.7-10.3); Parathyroid Hormone, Intact 17 pg/mL (15-65)
[2023-07-04 13:42] LABS: 1,25-Dihydroxy, Vitamin D-2 <10 pg/mL (.)
== END ==
PROVIDERS: PCP Family Medicine; Referring Provider Family Medicine; Visit Provider Family Medicine
DX: E83.52 Hypercalcemia (principal); D64.9 Anemia, unspecified; R16.0 Hepatomegaly, not elsewhere classified; E67.3 Hypervitaminosis D; R53.83 Other fatigue
CPT/HCPCS: 36415; 80053; 80061; 82306; 82310; 82397; 82652; 82728; 83540; 83550; 83970; 84550; 85025; 86140

== ENCOUNTER → 2023-12-02 09:54 | Outpatient (CLI) | payer MEDICARE, OTHER, SELFPAY ==
--- NOTE | 2023-12-02 09:55 | DI.MG.S_ITS ---
BILATERAL DIGITAL SCREENING MAMMOGRAM 3D/2D WITH CAD: 12/02/2023 CLINICAL: Routine screening. Comparison is made to exams dated: 06/21/2022 mammogram, 03/26/2021 mammogram, and 02/20/2020 mammogram - [facility]. There are scattered areas of fibroglandular density (category b / 25%-50% glandular tissue). Current study was also evaluated with a Computer Aided Detection (CAD) system. No significant masses, calcifications, or other findings are seen in either breast. There has been no significant interval change. IMPRESSION: NEGATIVE There is no mammographic evidence of malignancy. A 1 year screening mammogram is recommended. Based on the Tyrer Cuzick model (a risk assessment model) the patient's lifetime risk is 5.0% and her 10 year risk is 2.6%. According to the ACR, ACS, and NCCN guidelines, an annual breast MRI exam along with mammogram is recommended if the patient's lifetime risk is 20% or greater. This exam was interpreted at Station ID: [id number]. NOTE: For mammograms, a report in lay terms will be sent to the patient. Approximately 15% of breast malignancies will not be visualized mammographically. In the management of a palpable breast mass, a negative mammogram must not discourage biopsy of a clinically suspicious lesion. Electronically Signed By: Dipak [email or web address]:12/02/2023 13:52:44 copy to: Netta Pierce letter sent: Normal Exam ACR BI-RADS Category 1: Negative
== END ==
LOC: MAMMO 09:55
PROVIDERS: PCP Family Medicine; Referring Provider Family Medicine; Visit Provider Family Medicine
DX: Z12.31 Encounter for screening mammogram for malignant neoplasm of breast (principal)
CPT/HCPCS: 77063; 77067

== ENCOUNTER → 2024-05-08 16:18 | Outpatient (CLI) | payer MEDICARE, OTHER, SELFPAY ==
[2024-05-12 20:36] LABS: Atopobium vaginae Low - 0 Score (.); Bact Vaginosis-Assoc. bacteria Low - 0 Score (.); Candida albicans, NAA Negative (Negative); Candida glabrata Negative (Negative); Chlamydia trachomatis Negative (Negative); Megasphaera 1 Low - 0 Score (.); Neisseria gonorrhoeae Negative (Negative); Trichomoas vaginalis by NAA Negative (Negative)
== END ==
PROVIDERS: PCP Family Medicine; Visit Provider Family Medicine
DX: N89.8 Other specified noninflammatory disorders of vagina (principal); R30.0 Dysuria; Z87.42 Personal history of other diseases of the female genital tract
CPT/HCPCS: 87086; 87480; 87491; 87510; 87591; 87798; 87801

== ENCOUNTER → 2024-07-02 12:34 | Outpatient (CLI) | payer MEDICARE, OTHER, SELFPAY ==
[2024-07-02 13:07] LABS: Add Manual Diff / Slide Review NO; Basophils Absolute Auto 0 /uL (0-100); Basophils Percent Auto 0.4 % (0-2); Eosinophils Absolute Auto 0 /uL (0-450); Eosinophils Percent Auto 0.6 % (2-4); Hematocrit 40.2 % (36-46); Hemoglobin 13.5 g/dL (12.0-16.0); Lymphocytes Absolute Auto 1500 /uL (1100-4500); Lymphocytes Percent Auto 25.3 % (25-40); Mean Corpuscular HGB Conc 33.5 % (30-36); Mean Corpuscular Hemoglobin 31.1 PG (26-34); Mean Corpuscular Volume 92.8 fL (80-100); Monocytes Absolute Auto 500 /uL (0-900); Monocytes Percent Auto 7.6 % (3-14); Neutrophils Absolute Auto 4000 /uL (1500-7000); Neutrophils Percent Auto 66.1 % (50-75); Platelet Count 236 X10^3/uL (150-400); Red Blood Cell Count 4.33 X10^6/uL (4.0-5.2); Red Cell Distribution Width 13.6 % (11.6-14.8); White Blood Cell Count 6.1 X10^3/uL (4.5-11.0)
[2024-07-02 13:15] LABS: Hemoglobin A1C% w Est Avg Glu 5.3 % (4.0-6.0)
[2024-07-02 13:25] LABS: Alanine Aminotransferase 23 IU/L (<35); Albumin 4.7 g/dL (3.5-5.0); Alkaline Phosphatase 85 U/L (38-126); Aspartate Aminotransferase 36 IU/L (14-36); BUN Creatinine Ratio 23.4 (6-22); Bilirubin Total 0.7 mg/dL (0.2-1.3); Blood Urea Nitrogen 18 mg/dL (7-17); Calcium 9.8 mg/dL (8.4-10.2); Carbon Dioxide 28 mmol/L (22-32); Chloride 105 mmol/L (98-107); Cholesterol 217 mg/dL (140-199); Estimated Glomerular Filt Rate > 60 mL/min (>60); Globulin 2.3 g/dL (1.7-4.1); Glucose 97 mg/dL (80-110); HDL Cholesterol 101 mg/dL (40-60); HEMOLYSIS < 15 (0-50); LDL Cholesterol Calculated 100 mg/dL (<100); Potassium 4.2 mmol/L (3.4-5.1); Sodium 141 mmol/L (137-145); Triglycerides 78 mg/dL (35-150); Uric Acid 4.4 mg/dL (2.5-6.2)
[2024-07-02 14:26] LABS: Vitamin D 25 Hydroxy (D3) 52.8 ng/mL (30.0-100.0)
[2024-07-04 04:08] LABS: CRP, High Sensitivity 0.23 mg/L (0.00-3.00)
== END ==
PROVIDERS: PCP Family Medicine; Referring Provider Family Medicine; Visit Provider Family Medicine
DX: R16.0 Hepatomegaly, not elsewhere classified (principal); Z79.899 Other long term (current) drug therapy; E83.52 Hypercalcemia; E67.3 Hypervitaminosis D; E78.5 Hyperlipidemia, unspecified
CPT/HCPCS: 36415; 80053; 80061; 82306; 82397; 83036; 84550; 85025; 86140

== ENCOUNTER → 2024-08-17 09:52 | Outpatient (CLI) | payer MEDICARE, OTHER, SELFPAY ==
[2024-08-17 10:48] LABS: Free T3, Triiodothyronine Free 3.86 pg/mL (2.77-5.27)
[2024-08-17 11:02] LABS: Thyroid Stimulating Hormone 4.19 uIU/mL (0.47-4.68)
[2024-08-17 11:05] LABS: Ferritin 35 ng/mL (11-264)
== END ==
PROVIDERS: PCP Family Medicine; Referring Provider Family Medicine; Visit Provider Family Medicine
DX: R68.89 Other general symptoms and signs (principal); R25.2 Cramp and spasm
CPT/HCPCS: 36415; 82728; 84443; 84481